=== PATIENT | female | born 1960 | race Caucasian/White ===

== ENCOUNTER → 2019-08-15 | Day surgery (SDC) | payer BC, OTHER ==
[~2019-08-15] MED LIST: Acetaminophen TAB* 325 MG PO PRN; Buffered Lidocaine 1% SYRIN* 1 ML/SYRINGE INTRADERM ONE; DiMENhydriNATE IV* 50 MG/ML VIAL IV PUSH PRN; DiMENhydriNATE IV* 50 MG/ML VIAL ONE; Ketorolac INJ* 30 MG/ML 1 ML VIAL IV PRN; Ketorolac INJ* 30 MG/ML 1 ML VIAL ONE; Lactated Ringers 1000 ML Bag* 1,000 ML IV SCH; Lidocaine 1% MPF ** 5 ML VIAL ONE; Midazolam* 1 MG/ML 2 ML VIAL (2 MG) ONE; Naloxone* 0.4 MG/ML 1 ML VIAL IV PRN; Ondansetron INJ* 2 MG/ML VIAL ONE; Propofol* 10 MG/ML 20 ML BTL ONE; ROPIVACAINE 5 MG/ML 30 ML BTL (0.5%) ONE; Ropivacaine 0.2% * 2 MG/ML VIAL ONE; ceFAZolin 2 GM PREMIX in ORs 2 GM/50 ML BAG ONE; fentaNYL* 50 MCG/ML 2 ML VIAL (100 MCG VIAL) IV PRN; fentaNYL* 50 MCG/ML 2 ML VIAL (100 MCG VIAL) ONE; oxyCODONE/Acetamin 5/325 MG* TAB PO PRN
[2019-08-15 18:09] VITALS: BP 125/69
--- NOTE | 2019-08-15 21:33 | OP ---
DATE OF OPERATION: 08/15/19 [facility] DATE OF : 62 SURGEON: Imtiaz Carpenter MD. BLOCK GREASER: MONICA Haro. An microbiology lab assistant was needed for the entirety of the case to help with positioning, retraction, and was utilized throughout all portions of the case. ANESTHESIOLOGIST: Dr. Guillen. ANESTHESIA: General interscalene block. PRE-OP DIAGNOSIS: Left shoulder impingement with possible partial tear of the rotator cuff and bicipital tendinitis. POST-OP DIAGNOSIS: Left shoulder impingement with possible partial tear of the rotator cuff and bicipital tendinitis. OPERATIVE PROCEDURE: Left shoulder arthroscopy: 1. Extensive glenohumeral debridement including biceps tenotomy. 2. Subacromial decompression with acromioplasty. 3. Rotator cuff repair with a Regeneten patch. IMPLANTS USED: Regeneten patch x1 size medium. INDICATIONS: Sierra Davis is a 59-year-old female who has had persistent shoulder pain for several months. She has failed conservative management including physical therapy, antiinflammatories, ice, heat, and injections. She has elected to proceed with surgical treatment. Risks and benefits were discussed at length and included, but are not limited to bleeding, infection, damage to nerves, vessels, neurovascular structures, wound nonhealing, persistent pain, need for further surgery, scarring, stiffness, incomplete relief of symptoms, and risks of anesthesia. DESCRIPTION OF PROCEDURE: The patient was greeted in the preoperative area by the attending surgeon. The correct extremity was marked and consent was confirmed. The anesthesiologist did an interscalene nerve block after which the patient was brought back to the operating suite, placed in the supine position on the operating table and then underwent general anesthesia and LMA intubation , after which she was placed in the right lateral decubitus position with an axillary roll. All bony prominences were padded. She was secured with a pegboard. The left arm was draped unsterile with 10 pounds of traction. The left shoulder was prepped and draped in the usual sterile fashion beginning with chlorhexidine soap, scrub, and alcohol wipe, and a final prep with ChloraPrep. After appropriate surgical pause indicating side, site, procedure, and administration of antibiotics, an 11-blade was used to make an incision in the posterolateral portal. The scope was introduced into the joint and joint was examined. There were small areas of grade 0 to 1 changes of the humeral head and grade 1 to 2 changes of the glenohumeral joint. The biceps had unstable fraying. The luisana was damaged. The anterior portal was made in an outside-in fashion. Shaver was used to debride back. The anterior, posterior, and superior labrum has unstable fraying and a small chondroplasty. The biceps was then tenotomized. The inferior recess was intact. The undersurface of the rotator cuff had very mild partial thickness tearing. Once the intraarticular work was completed, attention was directed to the subacromial space. The scope was introduced in the subacromial space. Lateral portal was made in an outside-in fashion. A shaver was used to debride back the abundant thick hyperemic bursa that was present. Once an extensive bursectomy was done, this revealed an irregular anterolateral spur, which was then debrided back using a 4 -0 hole quinton to perform the acromioplasty, the CA ligament was peeled back. The excess debris was removed and the cuff was then examined. There was some partial thickness tearing of the bursal side as well. Decision was made to treat this with a Regeneten patch. The size medium Regeneten patch was then brought to the field and placed under arthroscopic visualization. A separate stab incision to the medial, the tendon was secured medially with tendon neeraj and then laterally with bone neeraj. Final images were obtained. The graft was found to be well placed. The wounds were copiously irrigated with sterile saline. The portals were closed with 3-0 nylon in an interrupted fashion. Sterile dressings were applied. A Cryo/Cuff and a regular sling was applied. She was awoken from anesthesia and transferred to PACU in stable condition. POSTOPERATIVE PLAN: She will be nonweightbearing for 4 weeks and discharged on pain medication. DVT prophylaxis was considered, but deferred due to no previous personal or family history. She will start therapy within a week. I will see her back in 10 to 14 days. [id number]/[facility] #: [id number] ANAND
== END | disposition home or self-care (01) ==
LOC: OR 10:02
PROVIDERS: ATTEND Orthopaedic Surgery
DX: M75.42 Impingement syndrome of left shoulder (principal); M25.512 Pain in left shoulder; M75.22 Bicipital tendinitis, left shoulder; M75.112 Incomplete rotator cuff tear or rupture of left shoulder, not specified as traumatic; G89.18 Other acute postprocedural pain; J45.909 Unspecified asthma, uncomplicated; E03.9 Hypothyroidism, unspecified; F41.8 Other specified anxiety disorders; M19.90 Unspecified osteoarthritis, unspecified site; Z85.42 Personal history of malignant neoplasm of other parts of uterus; E78.00 Pure hypercholesterolemia, unspecified; I09.9 Rheumatic heart disease, unspecified
CPT/HCPCS: C1713; J0690; J1240; J1885; J2250; J2405; J2704; J2795; J3010

== ENCOUNTER 2019-11-05 11:22 | Day surgery (SDC) | payer BC ==
[~2019-11-05 11:22] MED LIST changes: -Acetaminophen TAB* 325 MG PO PRN; +Dexamethasone IV* 4 MG/ML 1 ML (4 MG) IV SLOW PU ONE; +Dexamethasone IV* 4 MG/ML 1 ML (4 MG) ONE; -DiMENhydriNATE IV* 50 MG/ML VIAL IV PUSH PRN; -DiMENhydriNATE IV* 50 MG/ML VIAL ONE; +Famotidine IV* 10 MG/ML 2 ML (20 mg) IV ONE; +Famotidine IV* 10 MG/ML 2 ML (20 mg) ONE; -Ketorolac INJ* 30 MG/ML 1 ML VIAL IV PRN; -Ketorolac INJ* 30 MG/ML 1 ML VIAL ONE; -Lidocaine 1% MPF ** 5 ML VIAL ONE; -Midazolam* 1 MG/ML 2 ML VIAL (2 MG) ONE; -Naloxone* 0.4 MG/ML 1 ML VIAL IV PRN; -Ondansetron INJ* 2 MG/ML VIAL ONE; -Propofol* 10 MG/ML 20 ML BTL ONE; -ROPIVACAINE 5 MG/ML 30 ML BTL (0.5%) ONE; -Ropivacaine 0.2% * 2 MG/ML VIAL ONE; -ceFAZolin 2 GM PREMIX in ORs 2 GM/50 ML BAG ONE; -fentaNYL* 50 MCG/ML 2 ML VIAL (100 MCG VIAL) IV PRN; -fentaNYL* 50 MCG/ML 2 ML VIAL (100 MCG VIAL) ONE; -oxyCODONE/Acetamin 5/325 MG* TAB PO PRN
[2019-11-05] MEDS ORDERED: ceFAZolin 2 GM PREMIX in ORs 2 GM/50 ML BAG ONE (11:39)
[2019-11-05] MEDS ORDERED: Midazolam* 1 MG/ML 5 ML VIAL (5 MG) ONE (11:56)
[2019-11-05] MEDS ORDERED: fentaNYL* 50 MCG/ML 5 ML VIAL (250 MCG VIAL) ONE (11:56)
[2019-11-05] MEDS ORDERED: Propofol* 10 MG/ML 20 ML BTL ONE (11:57)
[2019-11-05] MEDS ORDERED: Ketorolac INJ* 30 MG/ML 1 ML VIAL ONE (11:57)
[2019-11-05] MEDS ORDERED: Ondansetron INJ* 2 MG/ML VIAL ONE (11:57)
[2019-11-05] MEDS ORDERED: Bupivacaine 0.5% W/EPI SDV* 30 ML VIAL ONE (12:11)
[2019-11-05] MEDS ORDERED: Phenylephrine 40 MCG/ML SYRINGE ONE (12:32)
[2019-11-05] MEDS ORDERED: Lidocaine 2% PF * 5 ML VIAL ONE (12:32)
[2019-11-05] MEDS ORDERED: oxyCODONE/Acetamin 5/325 MG* TAB ONE (13:56)
[2019-11-05 14:55] VITALS: BP 141/87
--- NOTE | 2019-11-06 01:50 | OP ---
DATE OF SURGERY: 11/05/19 [facility] DATE OF : 62 ATTENDING PHYSICIAN: Imtiaz Carpenter MD ROOF CEMENT AND PAINT MAKER: MONICA Haro. An assistant professor of business was needed for the entirety of the case to help with positioning, retraction, and utilized throughout all portions of case. ANESTHESIOLOGIST: Dr. Ordoñez. ANESTHESIA: General. PRE-OP DIAGNOSIS: Shoulder stiffness. POST-OP DIAGNOSIS: Shoulder stiffness. OPERATIVE PROCEDURE: Open distal clavicle excision with manipulation under anesthesia. COMPLICATIONS: None. ESTIMATED BLOOD LOSS: 50. INDICATIONS: Sierra Davis is a 59-year-old female who had a previous shoulder arthroscopy with decompression and debridement and Regeneten patch and she was still having some residual stiffness. She at initial visit did not have any AC joint arthritis, discharged and developed it. It is very painful, debilitating. She responded to an injection. After an extensive discussion of risks and benefits of operative versus nonoperative treatment. The risks included but are not limited to bleeding, infection, damage to nerves, vessels, surrounding structures, wound nonhealing, persistent pain, need for surgery, scarring, stiffness, incomplete relief of symptoms, risk of anesthesia. DESCRIPTION OF PROCEDURE: The patient was greeted in the preoperative area by the attending surgeon. The correct extremity was marked and the consent was confirmed. The patient was brought back to the operating suite where she was placed in the supine position on the operating table. She underwent general anesthesia after which she was appropriately positioned in the lazy beach chair position. The left shoulder was prepped and draped in the usual sterile fashion beginning with chlorhexidine soap, scrub, and alcohol wipe and a final prep with ChloraPrep. After appropriate surgical pause indicating site, side, procedure, administration of antibiotics, a standard and saber incision was then made using 15 blade. Soft tissues were carefully dissected to expose the AC joint, which was then incised longitudinally with care to keep flaps for later closure. The distal aspect of the clavicle was then exposed. There was abundant arthritis that was present as well as the spur. It was very stenotic joint. Both the anterior and posterior aspects of the clavicle were identified and distal 1 cm was then measured using a ruler and then a sagittal saw was then used to do a distal clavicle excision. All bony fragments were removed. The shoulder was taken through range of motion and there was no evidence of impingement of cross body adduction. The edges of the clavicle were then rasped. The AC capsule was closed with 0 Vicryl in an interrupted fashion. The wounds were copiously irrigated with sterile saline. Subcutaneous tissue was closed with 3-0 Monocryl and the skin with running 3-0 nylon. Sterile dressings were applied and then wound was locally injected with 0.2% ropivacaine and the wound was dressed. Because of the patient's preoperative stiffness, decision was made to do manipulation under anesthesia. The manipulation was then done. There were significant adhesions. Her forward flexion was limited to 120 passively and I was able to get her to 170, cross-body reduction to the other shoulder and external rotation to about 60 and abduction to about 150. The extremity was pink and well perfused. The joint was intra-articularly injected with 0.2% ropivacaine for pain management. She was awoken from anesthesia and transferred to PACU in stable condition. POSTOPERATIVE PLAN: She will be nonweightbearing. She will be in a sling for a couple of days. She will be discharged on pain medications. DVT prophylaxis is considered, but deferred due to no previous personal or family history. I will see the patient back in 10 to 14 days. [id number]/[facility] #: [id number] ANAND
== END 2019-11-05 14:55 | disposition home or self-care (01) ==
LOC: OREAST 11:22
PROVIDERS: ATTEND Orthopaedic Surgery
DX: M19.212 Secondary osteoarthritis, left shoulder (principal); M25.612 Stiffness of left shoulder, not elsewhere classified; M75.42 Impingement syndrome of left shoulder; J45.909 Unspecified asthma, uncomplicated; E03.9 Hypothyroidism, unspecified; M19.90 Unspecified osteoarthritis, unspecified site; F41.8 Other specified anxiety disorders; I09.9 Rheumatic heart disease, unspecified; Z85.42 Personal history of malignant neoplasm of other parts of uterus
CPT/HCPCS: 88304; 88311; A9270-GY; J0690; J1100; J1885; J2250; J2405; J2704; J3010